=== PATIENT | female | born 1985 | race Caucasian/White ===

== ENCOUNTER 2021-04-29 16:24 | Inpatient (IN) | payer OTHER ==
[2021-04-29] MEDS ORDERED: morphine CARPU-JECT 4 MG/1 ML DISP.SYRIN IVPUSH ONE (17:42)
[2021-04-29] MEDS ORDERED: SODIUM CHLORIDE 1,000 ML IV STA ×2 (17:42→20:51)
[2021-04-29] MEDS ORDERED: morphine SULFATE 4 MG/ML VIAL ONE (17:44)
[2021-04-29] MEDS ORDERED: ONDANSETRON 4 MG/2 ML VIAL IVPUSH ONE (17:46)
[2021-04-29 18:23] LABS: BASO % 1.9 % (0-2.0); EOS % 1.3 % (0-4.5); HEMATOCRIT 35.6 % (32.4-45.2); HEMOGLOBIN 11.9 GM/dL (10.7-15.3); LYMPH % 46.4 % (8-40); MCH 26.5 pg (25.7-33.7); MCHC 33.4 g/dl (32.0-36.0); MEAN CELL VOLUME 79.4 fl (80-96); MEAN PLT VOLUME 9.6 fl (7.5-11.1); MONO % 9.8 % (3.8-10.2); NEUT % 40.6 % (42.8-82.8); PLATELET COUNT 251 10^3/uL (134-434); RBC 4.48 M/mm3 (3.60-5.2); RDW 14.5 % (11.6-15.6); WHITE BLOOD COUNT 5.2 K/mm3 (4.0-10.0)
[2021-04-29 18:30] LABS: INR 0.99 (0.83-1.09); PROTHROMBIN TIME (PATIENT) 12.2 SEC (9.7-13.0)
[2021-04-29 18:33] LABS: ACTIVATED PTT 35.1 SECONDS (25.2-36.5)
[2021-04-29 18:43] LABS: BLOOD UREA NITROGEN 12.6 mg/dL (7-18); CALCIUM 8.7 mg/dL (8.5-10.1)
[2021-04-29 18:44] LABS: ALBUMIN 3.8 g/dl (3.4-5.0)
[2021-04-29 18:46] LABS: CREATININE 0.9 mg/dL (0.55-1.3)
[2021-04-29 18:48] LABS: BILIRUBIN,TOTAL 0.5 mg/dL (0.2-1)
[2021-04-29 18:50] LABS: TOT PROT 7.4 g/dl (6.4-8.2)
[2021-04-29] MEDS ORDERED: morphine CARPU-JECT 2 MG/1 ML DISP.SYRIN IM ONE (20:44)
[2021-04-29] MEDS ORDERED: MORPHINE SULFATE 2 MG/ML VIAL ONE (20:51)
[2021-04-29 21:24] LABS: PH,URINE 6.5 (5.0-8.0); URINE APPEARANCE CLEAR; URINE BILIRUBIN NEGATIVE (NEGATIVE); URINE COLOR YELLOW; URINE GLUCOSE (UA) NEGATIVE (NEGATIVE); URINE KETONE NEGATIVE (NEGATIVE); URINE LEUK ESTERASE NEGATIVE (NEGATIVE); URINE NITRITE NEGATIVE (NEGATIVE); URINE PROTEIN NEGATIVE (NEGATIVE); URINE UROBILINOGEN 0.2 mg/dL (0.2-1.0)
[2021-04-30] MEDS ORDERED: ACETAMINOPHEN 325 MG TABLET (FP) PO PRN (01:04)
[2021-04-30] MEDS ORDERED: MORPHINE SULFATE 2 MG/ML VIAL IVPUSH PRN (01:13)
[2021-04-30] MEDS ORDERED: SODIUM CHLORIDE 1,000 ML IV SCH (01:15)
[2021-04-30 03:09] VITALS: BMI 24.3
[2021-04-30] MEDS ORDERED: BENZOIN/ALOE VERA/STORAX/TOLU 58 ML BOTTLE ONE (09:14)
[2021-04-30 09:34] LABS: HEMATOCRIT 33.9 % (32.4-45.2); HEMOGLOBIN 11.3 GM/dL (10.7-15.3); MCH 26.8 pg (25.7-33.7); MCHC 33.3 g/dl (32.0-36.0); MEAN CELL VOLUME 80.5 fl (80-96); MEAN PLT VOLUME 10.1 fl (7.5-11.1); PLATELET COUNT 219 10^3/uL (134-434); RBC 4.21 M/mm3 (3.60-5.2); RDW 14.6 % (11.6-15.6); WHITE BLOOD COUNT 4.4 K/mm3 (4.0-10.0)
[2021-04-30] MEDS: PANTOPRAZOLE SODIUM 40 MG VIAL IVPUSH SCH (09:41)
[2021-04-30] MEDS: ENOXAPARIN NA (PORCINE) 40 MG/0.4 ML DISP.SYRIN SQ SCH (09:41)
[2021-04-30 10:19] LABS: ALBUMIN 3.1 g/dl (3.4-5.0)
[2021-04-30 10:20] LABS: BLOOD UREA NITROGEN 6.1 mg/dL (7-18); MAGNESIUM 1.9 mg/dL (1.8-2.4)
[2021-04-30 10:22] LABS: BILIRUBIN,TOTAL 0.6 mg/dL (0.2-1)
[2021-04-30 10:23] LABS: CREATININE 0.6 mg/dL (0.55-1.3); PHOSPHOROUS 2.5 mg/dL (2.5-4.9)
[2021-05-01 09:24] LABS: HEMATOCRIT 37.4 % (32.4-45.2); HEMOGLOBIN 12.6 GM/dL (10.7-15.3); MCH 26.8 pg (25.7-33.7); MCHC 33.7 g/dl (32.0-36.0); MEAN CELL VOLUME 79.6 fl (80-96); MEAN PLT VOLUME 10.3 fl (7.5-11.1); PLATELET COUNT 244 10^3/uL (134-434); RDW 14.3 % (11.6-15.6)
[2021-05-01 10:17] LABS: CREATININE 0.8 mg/dL (0.55-1.3)
[2021-05-01 10:28] LABS: BLOOD UREA NITROGEN 8.1 mg/dL (7-18)
[2021-05-01 10:58] VITALS: BP 111/60; PULSE 67; TEMP 97.7
[2021-05-01] MEDS: PANTOPRAZOLE SODIUM 40 MG VIAL IVPUSH SCH (10:58)
[2021-05-01] MEDS: ENOXAPARIN NA (PORCINE) 40 MG/0.4 ML DISP.SYRIN SQ SCH (10:58)
== END 2021-05-01 15:56 | disposition home or self-care (01) | DRG 249 ==
LOC: JER 16:24 → JERBED 23:32 → J6S 04-30 02:25
PROVIDERS: ADMIT Internal Medicine; ATTEND Internal Medicine
DX: K52.9 Noninfective gastroenteritis and colitis, unspecified (principal); R68.83 Chills (without fever); R10.31 Right lower quadrant pain; R11.2 Nausea with vomiting, unspecified
CPT/HCPCS: 36415; 74176-TC; 80048; 80053; 81003; 83605; 83690; 83735; 84100; 84703; 85025; 85027; 85610; 85730; 86850; 86900; 86901; 87077; 87086; 93005; 93010; 99285-25; C9803; Q9967; U0003; U0005

== ENCOUNTER 2022-02-17 11:53 | Emergency (ER) | payer OTHER ==
[2022-02-17 12:08] VITALS: BP 111/59; PULSE 66; TEMP 98; BMI 25.9
[2022-02-17 14:56] LABS: BASO % 0.7 % (0-2.0); EOS % 1.4 % (0-4.5); HEMATOCRIT 39.7 % (32.4-45.2); LYMPH % 57.5 % (8-40); MCH 25.7 pg (25.7-33.7); MCHC 32.7 g/dl (32.0-36.0); MEAN CELL VOLUME 78.7 fl (80-96); MEAN PLT VOLUME 9.7 fl (7.5-11.1); NEUT % 32.4 % (42.8-82.8); PLATELET COUNT 260 10^3/uL (134-434); RBC 5.04 M/mm3 (3.60-5.2); RDW 14.2 % (11.6-15.6); WHITE BLOOD COUNT 4.6 K/mm3 (4.0-10.0)
[2022-02-17 15:42] LABS: BLOOD UREA NITROGEN 11.7 mg/dL (7-18); CALCIUM 9.6 mg/dL (8.5-10.1)
[2022-02-17 15:44] LABS: ALBUMIN 4.2 g/dl (3.4-5.0)
[2022-02-17 15:47] LABS: CREATININE 0.7 mg/dL (0.55-1.3)
[2022-02-17 15:48] LABS: BILIRUBIN,TOTAL 0.7 mg/dL (0.2-1); TOT PROT 7.9 g/dl (6.4-8.2)
== END 2022-02-17 17:41 | disposition home or self-care (01) ==
LOC: JER 11:53
DX: R53.83 Other fatigue (principal); R07.89 Other chest pain
CPT/HCPCS: 36415; 71046-TC-FY; 80053; 84443; 84484; 85025; 93005; 93010; 99285-25

== ENCOUNTER 2022-04-16 12:42 | Emergency (ER) | payer OTHER ==
[2022-04-16 12:47] VITALS: BP 99/55; PULSE 71; RESP 18; TEMP 98.4; BMI 24.0
[2022-04-16] MEDS ORDERED: DIPHTH,PERTUSS(ACELL),TET 0.5 ML DISP.SYRIN IM ONE ×2 (13:53→13:54)
[2022-04-16] MEDS ORDERED: CEPHALEXIN MONOHYDRATE 500 MG CAPSULE (UD) PO ONE (14:28)
[2022-04-16] MEDS ORDERED: CEPHALEXIN MONOHYDRATE 500 MG CAPSULE (UD) ONE (14:30)
== END 2022-04-16 14:44 | disposition home or self-care (01) ==
LOC: JERFT 12:42
PROC: 3E0234Z Introduction of Serum, Toxoid and Vaccine into Muscle, Percutaneous Approach (ICD-10-PCS; principal; 2022-04-16)
DX: S92.534A Nondisplaced fracture of distal phalanx of right lesser toe(s), initial encounter for closed fracture (principal); S90.414A Abrasion, right lesser toe(s), initial encounter; W20.8XXA Other cause of strike by thrown, projected or falling object, initial encounter
CPT/HCPCS: 73660-TC-FY; 90471; 90715; 99284-25

== ENCOUNTER 2024-01-21 22:51 | Emergency (ER) | payer OTHER ==
[2024-01-21 22:58] VITALS: BP 108/67; PULSE 70; RESP 18; TEMP 98.2; BMI 25.7
[2024-01-22] MEDS ORDERED: DIPHTH,PERTUSS(ACELL),TET 0.5 ML DISP.SYRIN IM ONE (00:06)
[2024-01-22] MEDS: DIPHTH,PERTUSS(ACELL),TET 0.5 ML DISP.SYRIN IM ONE (00:14)
== END 2024-01-22 00:24 | disposition home or self-care (01) ==
LOC: JER 22:51
PROC: 3E0234Z Introduction of Serum, Toxoid and Vaccine into Muscle, Percutaneous Approach (ICD-10-PCS; 2024-01-21)
PROC: 0HQGXZZ Repair Left Hand Skin, External Approach (ICD-10-PCS; principal; 2024-01-22)
DX: S61.213A Laceration without foreign body of left middle finger without damage to nail, initial encounter (principal); W26.0XXA Contact with knife, initial encounter; Z23 Encounter for immunization
CPT/HCPCS: 12001-25; 90471; 90715; 99283-25

== ENCOUNTER 2024-08-16 22:35 | Emergency (ER) | payer SELFPAY ==
[2024-08-16 22:45] VITALS: TEMP 98.4; BMI 25.7
[2024-08-16 23:20] LABS: EPI CELLS 4 /uL (0-25.1); HYALINE CASTS 0 /uL (0-3.1); URINE APPEARANCE CLOUDY; URINE BACTERIA 160 /uL (0-1359); URINE BILIRUBIN NEGATIVE (NEGATIVE); URINE COLOR YELLOW; URINE GLUCOSE (UA) NEGATIVE (NEGATIVE); URINE KETONE NEGATIVE (NEGATIVE); URINE LEUK ESTERASE 2+ (NEGATIVE); URINE NITRITE NEGATIVE (NEGATIVE); URINE PROTEIN 2+ (NEGATIVE); URINE RBC 2051 /uL (0-23.9); URINE UROBILINOGEN 0.2 mg/dL (0.2-1.0); URINE WBC 810 /uL (0-25.8)
[2024-08-16 23:24] LABS: POTASSIUM 3.7 mmol/L (3.5-5.1)
[2024-08-16 23:26] LABS: BLOOD UREA NITROGEN 17.5 mg/dL (7-18); CALCIUM 9.3 mg/dL (8.5-10.1); INR 0.95 (0.83-1.09); PROTHROMBIN TIME (PATIENT) 10.9 SEC (9.7-13.0)
[2024-08-16 23:27] LABS: ALBUMIN 3.6 g/dl (3.4-5.0); MAGNESIUM 1.7 mg/dL (1.8-2.4)
[2024-08-16 23:28] LABS: ACTIVATED PTT 36.4 SECONDS (25.2-36.5)
[2024-08-16 23:30] LABS: CREATININE 0.7 mg/dL (0.55-1.3)
[2024-08-16 23:31] LABS: BILIRUBIN,TOTAL 0.2 mg/dL (0.2-1)
[2024-08-16 23:32] LABS: TOT PROT 6.7 g/dl (6.4-8.2)
[2024-08-16 23:36] LABS: BASO % 0.8 % (0-2.0); EOS % 0.9 % (0-4.5); HEMATOCRIT 34.7 % (32.4-45.2); HEMOGLOBIN 11.5 GM/dL (10.7-15.3); LYMPH % 33.3 % (8-40); MCH 26.1 pg (25.7-33.7); MEAN CELL VOLUME 78.9 fl (80-96); MEAN PLT VOLUME 9.4 fl (7.5-11.1); MONO % 8.8 % (3.8-10.2); NEUT % 56.2 % (42.8-82.8); PLATELET COUNT 243 10^3/uL (134-434); RDW 14.1 % (11.6-15.6); WHITE BLOOD COUNT 10.2 K/mm3 (4.0-10.0)
[2024-08-16] MEDS ORDERED: ACETAMINOPHEN 325 MG TABLET (FP) ONE (23:43)
[2024-08-16] MEDS ORDERED: CEPHALEXIN MONOHYDRATE 500 MG CAPSULE (UD) ONE (23:44)
[2024-08-16] MEDS: CEPHALEXIN MONOHYDRATE 500 MG CAPSULE (UD) PO ONE (23:53)
[2024-08-16] MEDS: ACETAMINOPHEN 325 MG TABLET (FP) PO ONE (23:53)
[2024-08-17 00:47] VITALS: BP 101/56; PULSE 73; RESP 16
== END 2024-08-17 00:47 | disposition home or self-care (01) ==
LOC: JER 22:35
DX: O09.521 Supervision of elderly multigravida, first trimester (principal); O20.0 Threatened abortion; O23.41 Unspecified infection of urinary tract in pregnancy, first trimester; Z3A.01 Less than 8 weeks gestation of pregnancy
CPT/HCPCS: 36415; 76817-TC; 80053; 81003; 83735; 84702; 85025; 85610; 85730; 86850; 86900; 86901; 99284-25

== ENCOUNTER 2024-10-28 15:21 | Emergency (ER) | payer OTHER ==
[2024-10-28 15:37] VITALS: BP 97/52; PULSE 64; RESP 20; TEMP 98.4; BMI 28.7
[2024-10-28 16:30] LABS: PH,URINE 6.5 (5.0-8.0); URINE APPEARANCE CLEAR; URINE BILIRUBIN NEGATIVE (NEGATIVE); URINE COLOR YELLOW; URINE GLUCOSE (UA) NEGATIVE (NEGATIVE); URINE KETONE NEGATIVE (NEGATIVE); URINE LEUK ESTERASE NEGATIVE (NEGATIVE); URINE NITRITE NEGATIVE (NEGATIVE); URINE PROTEIN NEGATIVE (NEGATIVE); URINE UROBILINOGEN 0.2 mg/dL (0.2-1.0)
[2024-10-28 16:36] LABS: HCG,QUALITATIVE URINE Positive
== END 2024-10-28 20:57 | disposition home or self-care (01) ==
LOC: JER 15:21
DX: O09.522 Supervision of elderly multigravida, second trimester (principal); O99.891 Other specified diseases and conditions complicating pregnancy; M54.50 Low back pain, unspecified; Z3A.17 17 weeks gestation of pregnancy; V49.40XA Driver injured in collision with unspecified motor vehicles in traffic accident, initial encounter; Y92.410 Unspecified street and highway as the place of occurrence of the external cause
CPT/HCPCS: 76801-TC; 81003; 84703; 99284-25

== ENCOUNTER 2025-02-25 13:10 | Inpatient (IN) | payer OTHER ==
[2025-02-25] MEDS: LACTATED RINGERS SOLUTION 1,000 ML IV SCH ×2 (13:40→15:35)
[2025-02-25 16:09] VITALS: BMI 30.8
[2025-02-25] MEDS ORDERED: NIFEdipine 10 MG CAPSULE (FP) ONE (17:50)
[2025-02-25] MEDS: NIFEdipine 10 MG CAPSULE (FP) PO ONE (17:55)
[2025-02-25 19:22] LABS: ABSOLUTE IMMATURE GRANULOCYTES 0.06 x10^3/uL (0.0-0.031); BASOPHILS # 0.04 x10^3/uL (0.01-0.08); EOSINOPHIL % 1.7 % (0.7-5.8); EOSINOPHILS # 0.15 x10^3/uL (0.04-0.36); MCHC 32.7 g/dl (32.2-35.5); MEAN CELL VOLUME 81.3 fl (79.4-94.8); MEAN PLT VOLUME 12.0 fl (9.4-12.3); MONOCYTE # 0.71 x10^3/uL (0.24-0.86); MONOCYTE % 8.2 % (4.7-12.5); RDW 14.3 % (12.2-17.1)
[2025-02-25 19:32] LABS: INR 1.03 (0.83-1.09); PROTHROMBIN TIME (PATIENT) 11.3 SEC (9.7-13.0)
[2025-02-25 19:35] LABS: ACTIVATED PTT 27.8 SECONDS (25.2-36.5)
[2025-02-25 19:49] LABS: CO2 22.0 mmol/L (21-32); GLUCOSE,RANDOM 163.0 mg/dL (74-106)
[2025-02-25 19:52] LABS: CREATININE 0.8 mg/dL (0.55-1.3)
[2025-02-25] MEDS: LACTATED RINGERS SOLUTION 1,000 ML/1,000 ML INFUS.BAG IV SCH (20:00)
[2025-02-26] MEDS ORDERED: NIFEdipine 10 MG CAPSULE (FP) ONE ×2 (01:57→09:58)
[2025-02-26] MEDS: NIFEdipine 10 MG CAPSULE (FP) PO SCH ×2 (01:58→16:41)
[2025-02-26] MEDS: NIFEdipine 10 MG CAPSULE (FP) PO ONE (10:00)
[2025-02-26] MEDS ORDERED: ONDANSETRON 4 MG/2 ML VIAL ONE ×3 (11:19→13:05)
[2025-02-26] MEDS: ONDANSETRON 4 MG/2 ML VIAL IVPB ONE (11:20)
[2025-02-26] MEDS: ELECTROLYTE-148 SOLN 500 ML IV ONE (12:00)
[2025-02-26] MEDS ORDERED: OXYTOCIN 20 UNITS in 0.9% NS 20 UNIT/1,000 ML INFUS.BAG IV ONE (12:30)
[2025-02-26] MEDS: CITRIC ACID/SODIUM CITRATE 30 ML UNIT-DOSE CUP PO ONE (12:30)
[2025-02-26] MEDS: ELECTROLYTE-148 SOLN 1,000 ML IV SCH (12:30)
[2025-02-26] MEDS ORDERED: AZITHROMYCIN IVPB 500 MG/250 ML BAG IVPB ONE (12:38)
[2025-02-26] MEDS ORDERED: morphine SULFATE/PF 1 MG/2 ML (2cc Syringe - QUVA) ONE (12:40)
[2025-02-26] MEDS ORDERED: FENTANYL CITRATE/PF 50 MCG/ML VIAL ONE (12:40)
[2025-02-26] MEDS ORDERED: DEXAMETHASONE SOD PHOSPHATE 4 MG/1 ML VIAL ONE (13:05)
[2025-02-26] MEDS ORDERED: LIGASURE IMPACT TP ONE (13:18)
[2025-02-26 14:12] LABS: CORD BASE EXCESS -6.4 mmol/L (0-2); CORD HCO3 20.8 mmHg (20-29); CORD PCO2 47.0 mmHg (30-78); CORD pH 7.263 (7.14-7.44)
[2025-02-26] MEDS ORDERED: METHYLERGONOVINE MALEATE 0.2 MG/1 ML AMP IM PRN (14:12)
[2025-02-26 14:14] LABS: CORD BASE EXCESS -4.1 mmol/L (0-2); CORD HCO3 21.6 mmHg (20-29); CORD PCO2 41.9 mmHg (30-78); CORD pH 7.331 (7.14-7.44)
[2025-02-26] MEDS ORDERED: PROMETHAZINE HCL 25 MG/1 ML VIAL IVPB PRN (14:28)
[2025-02-26 15:16] LABS: SYPHILIS W/ RPR CONF NON-REACTIVE (NONREACTIVE)
[2025-02-26] MEDS: OXYTOCIN 20 UNITS in 0.9% NS 20 UNIT/1,000 ML INFUS.BAG IV SCH (16:20)
[2025-02-26] MEDS: LACTATED RINGERS SOLUTION 1,000 ML IV SCH (16:41)
[2025-02-26] MEDS: IBUPROFEN 800 MG/8 ML IJ IVPB PRN (17:35)
[2025-02-26] MEDS: FERROUS SO4 325 MG TABLET (FP) PO SCH (22:33)
[2025-02-27] MEDS: diphenhydrAMINE HCL 25 MG CAPSULE (FP) PO PRN (04:06)
[2025-02-27 07:30] LABS: ABSOLUTE IMMATURE GRANULOCYTES 0.10 x10^3/uL (0.0-0.031); BASOPHILS # 0.03 x10^3/uL (0.01-0.08); EOSINOPHIL % 0.3 % (0.7-5.8); EOSINOPHILS # 0.05 x10^3/uL (0.04-0.36); MCHC 32.1 g/dl (32.2-35.5); MEAN CELL VOLUME 82.5 fl (79.4-94.8); MEAN PLT VOLUME 12.4 fl (9.4-12.3); MONOCYTE # 0.99 x10^3/uL (0.24-0.86); MONOCYTE % 6.6 % (4.7-12.5); RDW 14.4 % (12.2-17.1)
[2025-02-27] MEDS: IBUPROFEN 600 MG TABLET (FP) PO SCH (09:00)
[2025-02-27] MEDS: PRENATAL VITAMINS W/ FOLIC ACID TABLET (FP) PO SCH (09:58)
[2025-02-27] MEDS: ACETAMINOPHEN 325 MG TABLET (FP) PO SCH (11:00)
[2025-02-27 11:23] LABS: POC NITRAZINE POS
[2025-02-27] MEDS ORDERED: BISACODYL 10 MG SUPP.RECT RC PRN (14:12)
[2025-02-27] MEDS: SIMETHICONE 80 MG TAB.CHEW (FP) PO PRN (20:20)
[2025-03-01 07:24] LABS: ABSOLUTE IMMATURE GRANULOCYTES 0.04 x10^3/uL (0.0-0.031); BASOPHILS # 0.04 x10^3/uL (0.01-0.08); EOSINOPHIL % 4.2 % (0.7-5.8); EOSINOPHILS # 0.32 x10^3/uL (0.04-0.36); MCHC 31.3 g/dl (32.2-35.5); MEAN CELL VOLUME 83.1 fl (79.4-94.8); MEAN PLT VOLUME 12.4 fl (9.4-12.3); MONOCYTE # 0.58 x10^3/uL (0.24-0.86); MONOCYTE % 7.6 % (4.7-12.5); RDW 14.6 % (12.2-17.1)
[2025-03-02 10:12] VITALS: BP 103/56; PULSE 70; RESP 17; TEMP 98.6
== END 2025-03-02 13:40 | disposition home or self-care (01) | DRG 540 ==
LOC: JDEL 13:10 → JLDR 15:35 → OBSVTOIN 02-26 11:55 → J3W 02-26 16:31
PROVIDERS: ADMIT Obstetrics & Gynecology; ATTEND Obstetrics & Gynecology
PROC: 10D00Z1 Extraction of Products of Conception, Low, Open Approach (ICD-10-PCS; principal; 2025-02-26)
PROC: 0UB70ZZ Excision of Bilateral Fallopian Tubes, Open Approach (ICD-10-PCS; 2025-02-26)
DX: O42.913 Preterm premature rupture of membranes, unspecified as to length of time between rupture and onset of labor, third trimester (principal); O60.14X0 Preterm labor third trimester with preterm delivery third trimester, not applicable or unspecified; O44.13 Complete placenta previa with hemorrhage, third trimester; O34.211 Maternal care for low transverse scar from previous cesarean delivery; N85.8 Other specified noninflammatory disorders of uterus; Z3A.33 33 weeks gestation of pregnancy; Z30.2 Encounter for sterilization; Z37.0 Single live birth
CPT/HCPCS: 36415; 36600; 59025; 59409; 80048; 82803; 83986-QW; 85025; 85610; 85730; 86780; 86850; 86900; 86901; 87389; 88302-TC; 88305-TC; 88307-TC; 94010; G0378